=== PATIENT | male | born 1990 | race American Indian/Alaskan Native ===

== ENCOUNTER 2019-06-15 15:38 | Emergency (ER) | payer SELFPAY ==
--- NOTE | 2019-06-15 16:00 | Emergency Department Report ---
Blank Doc - Documentation Documentation: 28-year-old male that presents with chest pain and SOB. Stated has been depre ssed but denies any SI/HI. ETOH was last night but denies any today. Tachycardia in triage. This initial assessment/diagnostic orders/clinical plan/treatment(s) is/are subject to change based on patient's health status, clinical progression and re- assessment by fellow clinical providers in the ED. Further treatment and workup at subsequent clinical providers discretion. Patient/guardians urged not to elope from the ED as their condition may be serious if not clinically assessed and managed. Initial orders include: 1- Patient sent to [facility] for further evaluation and treatment 2- labs 3- EKG 4- CXR
--- NOTE | 2019-06-15 16:28 | XRay Report ---
CHEST 2 VIEWS INDICATION: Chest Pain. COMPARISON: None FINDINGS: Support devices: None. Heart: Within normal limits. Lungs/pleura: No acute air space or interstitial disease. No pneumothorax. Additional findings: None. IMPRESSION: Normal chest x-ray Signer Name: Edis Garcias Jr, MD Signed: 06/15/2019 4:24 PM Workstation Name: [id number]
[2019-06-15] MEDS ORDERED: LACTATED RINGERS 1,000 ML IV ONE (17:08)
[2019-06-15 17:15] LABS: Basophils # (Auto) 0.2 K/mm3 (0.0-0.1); Basophils % (Auto) 2.6 % (0.0-1.8); Eosinophils # (Auto) 0.1 K/mm3 (0.0-0.4); Eosinophils % (Auto) 0.8 % (0.0-4.3); Hematocrit 45.4 % (35.5-45.6); Hemoglobin 15.3 gm/dl (11.8-15.2); Lymphocytes # (Auto) 1.4 K/mm3 (1.2-5.4); Lymphocytes % (Auto) 23.3 % (13.4-35.0); Mean Corpuscular HGB Conc 34 % (32-34); Mean Corpuscular Volume 83 fl (84-94); Monocytes # (Auto) 0.4 K/mm3 (0.0-0.8); Monocytes % (Auto) 6.4 % (0.0-7.3); Platelet Count 297 K/mm3 (140-440); Red Blood Count 5.48 M/mm3 (3.65-5.03); Red Cell Distribution Width 14.1 % (13.2-15.2)
[2019-06-15 17:35] LABS: BUN/Creatinine Ratio 10; Blood Urea Nitrogen 9 mg/dL (9-20); Calcium 9.3 mg/dL (8.4-10.2); Hemolysis Index 31
[2019-06-15 19:28] VITALS: BP 157/95
[2019-06-15 19:35] LABS: Alanine Aminotransferase 74 units/L (7-56); Albumin 4.7 g/dL (3.9-5)
[2019-06-15 19:54] LABS: Bilirubin,Direct < 0.2 mg/dL (0-0.2)
--- NOTE | 2019-06-15 20:00 | Emergency Department Report ---
ED Chest Pain HPI - General Chief Complaint: Chest Pain Stated Complaint: CHEST PAIN Time Seen by Provider: 06/15/19 15:55 Source: patient Mode of arrival: Ambulatory Limitations: No Limitations - History of Present Illness Initial Comments: Mr. Carroll 28-year-old male that presents with chest pain and SOB. Stated has been depressed but denies any SI/HI. ETOH was last night but denies any today. Chest pain is described as epigastric radiating to right right upper quadrant. Pain is relieved by nothing. Pain is exacerbated by nothing. patient continues to deny shortness of breath there is no wheezing no nausea vomiting at this time. Onset/Timin -: days(s) Onset: associated with drug use (ETOH) Pain Location: epigastric Pain Radiation: RUE Severity: moderate Severity scale (0 -10): 8 Quality: sharp Consistency: intermittent Improves With: nothing Worsens With: nothing Context: other (ETOH ) re: nausea. denies: vomting Other Symptoms: acid taste in mouth, burping Treatments Prior to Arrival: none Aspirin use within the Past 7 Days: (0) No - Related Data Previous Rx's Medication Instructions Recorded Last Taken Type Dicyclomine [Bentyl] 10 mg PO QID PRN #30 capsule 06/16/19 Unknown Rx Famotidine [Pepcid] 20 mg PO BID #30 tablet 06/16/19 Unknown Rx Ondansetron [Zofran Odt] 4 mg PO Q8HR PRN #12 tab.rapdis 06/16/19 Unknown Rx Allergies Allergy/AdvReac Type Severity Reaction Status Date / Time No Known Allergies Allergy Unverified 06/15/19 15:44 Heart Score - HEART Score History: Slightly suspicious EKG: Normal Age: < 45 Risk factors: No known risk factors Troponin: < normal limit HEART Score: 0 ED Review of Systems ROS: Stated complaint: CHEST PAIN Other details as noted in HPI Constitutional: denies: chills, fever Eyes: denies: eye pain, eye discharge, vision change ENT: throat pain. denies: ear pain Respiratory: no symptoms reported. denies: cough, shortness of breath, wheezing Cardiovascular: chest pain (epigastric ). denies: palpitations, orthopnea, edema Endocrine: no symptoms reported Gastrointestinal: abdominal pain (RUQ ), nausea. denies: vomiting, diarrhea, constipation, hematemesis, melena Genitourinary: denies: urgency, dysuria, frequency, hematuria Musculoskeletal: denies: back pain Skin: denies: rash, lesions Neurological: headache. denies: weakness, numbness, paresthesias, confusion, vertigo Psychiatric: depression. denies: visual hallucinations, homicidal thoughts, suicidal thoughts Hematological/Lymphatic: denies: easy bleeding, easy bruising ED Past Medical Hx - Past Medical History Previous Medical History?: No - Surgical History Past Surgical History?: No - Social History Smoking Status: Never Smoker Substance Use Type: Alcohol - Medications Home Medications: Home Medications Medication Instructions Recorded Confirmed Last Taken Type Dicyclomine [Bentyl] 10 mg PO QID PRN #30 capsule 06/16/19 Unknown Rx Famotidine [Pepcid] 20 mg PO BID #30 tablet 06/16/19 Unknown Rx Ondansetron [Zofran Odt] 4 mg PO Q8HR PRN #12 tab.rapdis 06/16/19 Unknown Rx ED Physical Exam - General Limitations: No Limitations General appearance: alert, in no apparent distress - Head Head exam: Present: atraumatic, normocephalic - Eye Eye exam: Present: normal appearance, PERRL, EOMI Pupils: Present: normal accommodation - ENT ENT exam: Present: normal orophraynx, mucous membranes moist, TM's normal bilaterally, normal external ear exam - Neck Neck exam: Present: normal inspection, full ROM. Absent: tenderness, lymphadenopathy - Respiratory Respiratory exam: Present: normal lung sounds bilaterally, chest wall tenderness (epigastric ). Absent: respiratory distress, wheezes, rales, rhonchi, stridor, prolonged expiratory - Cardiovascular Cardiovascular Exam: Present: regular rate, normal rhythm, normal heart sounds. Absent: systolic murmur, diastolic murmur, rubs, gallop - GI/Abdominal GI/Abdominal exam: Present: soft, tenderness (epigastric , RUQ ), normal bowel sounds. Absent: distended, guarding, rebound, rigid, bruit, hernia - Expanded GI/Abdominal Exam Expanded GI/Abdominal exam: Present: Colbert's sign. Absent: psoas sign, obturator sign, heel tap sign, Rovsing's sign, tenderness at Mcburney's Point, ascites - Rectal Rectal exam: Present: deferred - Extremities Exam Extremities exam: Present: normal inspection, full ROM. Absent: tenderness, pedal edema - Back Exam Back exam: Present: normal inspection, full ROM. Absent: tenderness, CVA tenderness (R), CVA tenderness (L) - Neurological Exam Neurological exam: Present: alert, oriented X3, CN II-XII intact, normal gait - Psychiatric Psychiatric exam: Present: flat affect. Absent: suicidal ideation - Skin Skin exam: Present: warm, dry, intact, normal color. Absent: rash ED Course Vital Signs 06/15/19 06/15/19 06/15/19 15:57 19:24 19:28 Temperature 98.2 F 97.8 F Pulse Rate 132 H 105 H Respiratory 18 16 15 Rate Blood Pressure 161/96 157/95 O2 Sat by Pulse 95 92 Oximetry SCOTTIE score - Scottie Score Age > 65: (0) No Aspirin use within the Past 7 Days: (0) No 3 or more CAD Risk Factors: (0) No 2 or more Angina events in past 24 hrs: (0) No Known CAD with more than 50% Stenosis: (0) No Elevated Cardiac Markers: (0) No ST Deviation Greater than 0.5mm: (0) No SCOTTIE Score: 0 ED Medical Decision Making - Lab Data Result diagrams: 06/15/19 16:59 06/15/19 16:59 Labs 06/15/19 06/15/19 06/15/19 16:59 16:59 16:59 WBC 6.0 RBC 5.48 H Hgb 15.3 H Hct 45.4 MCV 83 L MCH 28 MCHC 34 RDW 14.1 Plt Count 297 Lymph % (Auto) 23.3 Hitchcock % (Auto) 6.4 Eos % (Auto) 0.8 Baso % (Auto) 2.6 H Lymph # 1.4 Hitchcock # 0.4 Eos # 0.1 Baso # 0.2 H Seg Neutrophils % 66.9 Seg Neutrophils # 4.0 Sodium 140 Potassium 4.6 Chloride 96.1 L Carbon Dioxide 19 L Anion Gap 30 BUN 9 Creatinine 0.9 Estimated GFR > 60 BUN/Creatinine Ratio 10 Glucose 98 Calcium 9.3 Total Bilirubin Direct Bilirubin Indirect Bilirubin AST ALT Alkaline Phosphatase Troponin T < 0.010 Total Protein Albumin Albumin/Globulin Ratio Lipase TSH 0.721 Free T4 06/15/19 06/15/19 18:54 18:54 WBC RBC Hgb Hct MCV MCH MCHC RDW Plt Count Lymph % (Auto) Hitchcock % (Auto) Eos % (Auto) Baso % (Auto) Lymph # Hitchcock # Eos # Baso # Seg Neutrophils % Seg Neutrophils # Sodium Potassium Chloride Carbon Dioxide Anion Gap BUN Creatinine Estimated GFR BUN/Creatinine Ratio Glucose Calcium Total Bilirubin 0.30 Direct Bilirubin < 0.2 Indirect Bilirubin 0.1 AST 68 H ALT 74 H Alkaline Phosphatase 58 Troponin T Total Protein 8.3 H Albumin 4.7 Albumin/Globulin Ratio 1.3 Lipase 28 TSH Free T4 1.18 - Radiology Data Radiology results: report reviewed, image reviewed Findings [address] [id number] Cat Scan Report Signed Patient: LAM CARROLL I MR#: [id number] : 1990 Acct:[id number] Age/Sex: 28 / M ADM Date: 06/15/19 Loc: ED Attending Dr: Ordering Physician: ELEANOR ESCOBAR NP Date of Service: 06/15/19 Procedure(s): CT abdomen pelvis w con Accession Number(s): [id number] cc: ELEANOR ESCOBAR NP CT abdomen pelvis w con INDICATION: abd pain RUQ nausea. TECHNIQUE: All CT scans at this location are performed using the following dose modulation technique: Automated exposure control. CONTRAST: Omnipaque 300, 100 cc IV injection. COMPARISON: None available. CT ABDOMEN: Evaluation the parenchymal organs demonstrates prominent diffuse fatty infiltration of the liver. The rem aining parenchymal organs are unremarkable. Negative for abdominal mass, fluid or inflammation. The bowel is not dilated or thickened. A normal appendix is identified. CT PELVIS: Negative for distal ureteral stone, pelvic fluid collection or inflammation. Mild symmetric thickening is noted the bladder. IMPRESSION: 1. Prominent fatty liver. Negative for right upper quadrant inflammatory process. 2. Mild symmetric bladder thickening. Signer Name: Mich Corado MD Signed: 06/15/2019 8:53 PM Workstation Name: [id number] Transcribed By: ES Dictated By: Mich Corado MD Electronically Authenticated By: Mich Corado MD Signed Date/Time: 06/15/192052 DD/ 49 TD/TT: Report Status: Finalized [address] [address] XRay Report Signed Patient: LAM CARROLL I MR#: [id number] : 1990 Acct:[id number] Age/Sex: 28 / M ADM Date: 06/15/19 Loc: ED Attending Dr: Ordering Physician: BIBIANA MARINA NP Date of Service: 06/15/19 Procedure(s): XR chest routine 2V Accession Number(s): [id number] cc: BIBIANA MARINA NP Fluoro Time In Minutes: CHEST 2 VIEWS INDICATION: Chest Pain. COMPARISON: None FINDINGS: Support devices: None. Heart: Within normal limits. Lungs/pleura: No acute air space or interstitial disease. No pneumothorax. Additional findings: None. IMPRESSION: Normal chest x-ray Signer Name: Edis Garcias Jr, MD Signed: 06/15/2019 4:24 PM Workstation Name: [id number] Transcribed By: TTR Dictated By: EDIS GARCAIS JR, MD Electronically Authenticated By: EDIS GARCIAS JR, MD Signed Date/Time: 06/15/191623 DD/ 22 TD/TT: - Medical Decision Making Patient symptoms are now improved, patient is ambulatory, there is no nausea /vomiting. patient is tolerating p.o. intake. There are no neuro deficits, no symptoms of withdrawals, patient is clinically sober. CT noted for fatty liver disease, plan stop EtOH ,Pepcid p.o., Zofran as needed nausea ,follow-up with primary care in 2 to 3 days, return to emergency should symptoms worsen. 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 ED Disposition Clinical Impression: ETOH abuse, Nausea and vomiting in adult Disposition: DC-01 TO HOME OR SELFCARE Is pt being admited?: No Does the pt Need Aspirin: No Condition: Stable Instructions: Acute Nausea and Vomiting (ED), Abdominal Pain (ED), Polysubstance Abuse (ED) Prescriptions: Dicyclomine [Bentyl] 10 mg PO QID PRN #30 capsule PRN Reason: abdominal spasm Famotidine [Pepcid] 20 mg PO BID #30 tablet Ondansetron [Zofran Odt] 4 mg PO Q8HR PRN #12 tab.rapdis PRN Reason: Nausea And Vomiting Referrals: [facility] [Provider Group] - 3-5 Days YOLI BRYAN MD [Staff Physician] - 3-5 Days Forms: Work/School Release Form(ED) Time of Disposition: 00:41
[2019-06-15] MEDS ORDERED: ONDANSETRON 4 MG/2 ML INJ IV ONE (20:30)
--- NOTE | 2019-06-15 20:58 | Cat Scan Report ---
CT abdomen pelvis w con INDICATION: abd pain RUQ nausea. TECHNIQUE: All CT scans at this location are performed using the following dose modulation technique: Automated exposure control. CONTRAST: Omnipaque 300, 100 cc IV injection. COMPARISON: None available. CT ABDOMEN: Evaluation the parenchymal organs demonstrates prominent diffuse fatty infiltration of th e liver. The remaining parenchymal organs are unremarkable. Negative for abdominal mass, fluid or inf lammation. The bowel is not dilated or thickened. A normal appendix is identified. CT PELVIS: Negative for distal ureteral stone, pelvic fluid collection or inflammation. Mild symmetri c thickening is noted the bladder. IMPRESSION: 1. Prominent fatty liver. Negative for right upper quadrant inflammatory process. 2. Mild symmetric bladder thickening. Signer Name: Mich Corado MD Signed: 06/15/2019 8:53 PM Workstation Name: [id number]
[2019-06-15] MEDS ORDERED: THIAMINE 100 MG, FOLIC ACID 1 MG, MULTIPLE VITAMIN INJ, ADULT 10 ML in SODIUM CHLORIDE ... IV ONE (21:00)
[2019-06-16 01:56] LABS: Bilirubin,Urine NEG (Negative); Blood,Urine SM (Negative); Color,Urine Straw (Yellow); Protein,Urine <15 mg/dL mg/dL (Negative); RBC,Urine < 1.0 /HPF (0.0-6.0); Urobilinogen,Urine < 2.0 mg/dL (<2.0)
== END 2019-06-16 01:00 | disposition home or self-care (01) ==
LOC: ED 15:38
DX: R11.2 Nausea with vomiting, unspecified (principal); R07.89 Other chest pain; R06.02 Shortness of breath; F10.120 Alcohol abuse with intoxication, uncomplicated
CPT/HCPCS: 36415; 71046; 74177; 80048; 80076; 81001; 83690; 84439; 84443; 84484; 85025; 93005; 93010; 96361; 96365; 96366; 96375; 99285; J2405; J3411; J7030; J7120; Q9967; 80320; G0480